=== PATIENT | female | born 1985 | race Asian ===

== ENCOUNTER 2021-02-16 14:34 | Emergency (ER) | payer OTHER ==
[~2021-02-16] VITALS: Ht 162.6 cm; Wt 76.0 kg
[2021-02-16 15:00] VITALS: BP 124/76
--- NOTE | 2021-02-16 15:40 | PHYS DOC ---
Past Medical History Past Medical History: No Pertinent History Past Surgical History: No Surgical History Smoking Status: Never Smoker Alcohol Use: None General Adult EDM: Chief Complaint: VAGINAL BLEEDING HPI: HPI: Patient is a 35 year old female who presents with today she noticed a small drop of blood in her underwear and she wiped and saw some on toilet paper. Patient denies abdominal pain, nausea, vomiting, diarrhea, fever,, abnormal vagi nal discharge, concern for sexually transmitted use. [facility] She states her next appointment is on March 06. She denies any pain. Her last menstrual period was January 04. She is due October 11, 2021. She is . Review of Systems: Review of Systems: Constitutional: Denies fever or chills. [] Eyes: Denies change in visual acuity. [] HENT: Denies nasal congestion or sore throat. [] Respiratory: Denies cough or shortness of breath. [] Cardiovascular: Denies chest pain or edema. [] GI: Denies abdominal pain, nausea, vomiting, bloody stools or diarrhea. [] : Denies dysuria. + Vaginal bleeding [] Musculoskeletal: Denies back pain or joint pain. [] Integument: Denies rash. [] Neurologic: Denies headache, focal weakness or sensory changes. [] Endocrine: Denies polyuria or polydipsia. [] Lymphatic: Denies swollen glands. [] Psychiatric: Denies depression or anxiety. [] Heart Score: C/O Chest Pain: No Risk Factors: Risk Factors: DM, Current or recent (<one month) smoker, HTN, HLP, family history of CAD, obesity. Risk Scores: Score 0 - 3: 2.5% MACE over next 6 weeks - Discharge Home Score 4 - 6: 20.3% MACE over next 6 weeks - Admit for Clinical Observation Score 7 - 10: 72.7% MACE over next 6 weeks - Early Invasive Strategies Physical Exam: PE: Constitutional: Well developed, well nourished, no acute distress, non-toxic appearance. [] HENT: Normocephalic, atraumatic, bilateral external ears normal, oropharynx moist, no oral exudates, nose normal. [] Eyes: PERRLA, EOMI, conjunctiva normal, no discharge. [] Neck: Normal range of motion, no tenderness, supple, no stridor. [] Cardiovascular:Heart rate regular rhythm, no murmur [] Lungs & Thorax: Bilateral breath sounds clear to auscultation [] Abdomen: Bowel sounds normal, soft, no tenderness, no masses, no pulsatile masses. [] Skin: Warm, dry, no erythema, no rash. [] Back: No tenderness, no CVA tenderness. [] Extremities: No tenderness, no cyanosis, no clubbing, ROM intact, no edema. [] Neurologic: Alert and oriented X 3, normal motor function, normal sensory function, no focal deficits noted. [] Psychologic: Affect normal, judgement normal, mood normal. Normal physical exam [] Current Patient Data: Vital Signs: Vital Signs Date Time Temp Pulse Resp B/P (MAP) Pulse Ox O2 Delivery O2 Flow Rate FiO2 02/16/21 15:00 98.7 74 16 124/76 (92) 100 Room Air 98.7 EKG: EKG: [] Radiology/Procedures: Radiology/Procedures: [] Impression: [facility] [address] [place] [address] IMAGING REPORT Signed PATIENT: BOB LICEA ACCOUNT: [id number] : 1985 LOCATION: ER AGE: 35 SEX: F EXAM STATUS: REG ER ORD. PHYSICIAN: LAURA MAYERS APRN REASON: VAGINAL BLEEDING PROCEDURE: OB <14 WKS W/TV Obstetric ultrasound less than 14 weeks with transvaginal: Reason for examination: Vaginal spotting. Transvaginally the uterus measures 9.7 x 6.5 x 4.5 cm in greatest dimension. The endometrium is not abnormally thickened at 1 cm. There is a 1.7 cm nodule within the uterine fundus consistent with fibroid. No intrauterine gestation is evident. Adjacent to the superior aspect of the uterus in the right adnexa, there is a 4.9 x 3.5 x 4.1 cm mass with some vascularity. This could represent an exophytic fibroid from the uterus or the right ovary however no follicles are seen. Posterior to the uterus and in the right adnexa, there appears to be a 2.8 x 1.6 x 2.9 cm structure which shows no abnormal vascularity or follicles. This also could represent the right ovary. There is no ectopic gestational sac evident. No free fluid is evident. IMPRESSION: No evidence of intrauterine or ectopic gestation. Soft tissue lesion within the uterine fundus measuring 1.7 cm in size consistent with a fibroid. 4.9 cm exophytic mass adjacent to the superior aspect of the uterus in the right adnexa possibly representing a uterine fibroid. 2.9 cm structure in the right adnexa posterior to uterus probably representing the right ovary with normal vascularity and no follicles. Recommend clinical correlation and follow-up. Electronically signed by: Aggie Womack MD (02/16/2021 5:09 PM) [facility] DICTATED and SIGNED BY: AGGIE WOMACK MD DATE: 02/16/21 [id number] 0 Course & Med Decision Making: Course & Med Decision Making Pertinent Labs and Imaging studies reviewed. (See chart for details) See HPI. Alert and oriented x4. Ambulatory with a steady gait. No CVA tenderness. Abdomen is soft and nontender. Skin is pink warm and dry. Vital signs are within normal limits. Speaks in full clear sentences. Patient's urine did not show any bacteria but showed some leukocytes and white blood cells. I will go ahead and treat her for UTI due to her being . Ultrasound showed fibroids and no gestational sac. Patient will follow up with her OB doctor. [] [place] Disclaimer: Dragjesse Disclaimer: This electronic medical record was generated, in whole or in part, using a voice recognition dictation system. Departure Departure Impression: Primary Impression: Threatened miscarriage Additional Impression: Uterine fibroid Qualified Codes: D25.9 - Leiomyoma of uterus, unspecified Disposition: HOME / SELF CARE / HOMELESS Condition: STABLE Referrals: RAUL SANTIAGO (PCP) Patient Instructions: Fibroids, [id number], Threatened Miscarriage Additional Instructions: Follow-up with your OB doctor soon as possible. I will call to see if you can get in sooner than later. If you begin bleeding vaginally and going through more than 1 pad an hour you should come back to the emergency room. Otherwise follow-up with your OB doctor. Drink plenty of fluids. Scripts Nitrofurantoin Monohyd/M-Cryst (MACROBID 100 MG CAPSULE) 100 Mg Capsule 1 CAP PO BID for 7 Days, #14 CAP 0 Refills Prov: LAURA MAYERS APRN 02/16/21 LAURA MAYERS APRN February 16, 2021 15:40
[2021-02-16 16:09] LABS: BASO % 1 % (0-3); EOS # 0.2 x10^3/uL (0.0-0.7); EOS % 2 % (0-3); HEMATOCRIT 34.9 % (36.0-47.0); HEMOGLOBIN 11.6 g/dL (12.0-15.5); LYMPH # 1.8 x10^3/uL (1.0-4.8); LYMPH % 29 % (24-48); MEAN CORPUSCULAR HEMOGLOBIN 29 pg (25-35); MEAN CORPUSCULAR HGB CONC 33 g/dL (31-37); MEAN CORPUSCULAR VOLUME 87 fL (79-100); MONO # 0.4 x10^3/uL (0.0-1.1); MONO % 6 % (0-9); NEUT # 3.9 x10^3/uL (1.8-7.7); NEUT % 62 % (31-73); PLATELET COUNT 272 x10^3/uL (140-400); RED BLOOD COUNT 4.03 x10^6/uL (3.50-5.40); RED CELL DISTRIBUTION WIDTH 12.9 % (11.5-14.5); WHITE BLOOD COUNT 6.3 x10^3/uL (4.0-11.0)
[2021-02-16 16:20] LABS: CALCIUM 8.4 mg/dL (8.5-10.1); CREATININE 0.6 mg/dL (0.6-1.0); GFR 113.1; POTASSIUM 4.4 mmol/L (3.5-5.1)
[2021-02-16 16:26] LABS: ALBUMIN 3.7 g/dL (3.4-5.0); TOTAL BILIRUBIN 0.4 mg/dL (0.2-1.0); TOTAL PROTEIN 7.3 g/dL (6.4-8.2)
--- NOTE | 2021-02-16 17:11 | RAD ---
Obstetric ultrasound less than 14 weeks with transvaginal: Reason for examination: Vaginal spotting. Transvaginally the uterus measures 9.7 x 6.5 x 4.5 cm in greatest dimension. The endometrium is not a bnormally thickened at 1 cm. There is a 1.7 cm nodule within the uterine fundus consistent with fibro id. No intrauterine gestation is evident. Adjacent to the superior aspect of the uterus in the right adnexa, there is a 4.9 x 3.5 x 4.1 cm mass with some vascularity. This could represent an exophytic f ibroid from the uterus or the right ovary however no follicles are seen. Posterior to the uterus and in the right adnexa, there appears to be a 2.8 x 1.6 x 2.9 cm structure which shows no abnormal vascu larity or follicles. This also could represent the right ovary. There is no ectopic gestational sac e vident. No free fluid is evident. IMPRESSION: No evidence of intrauterine or ectopic gestation. Soft tissue lesion within the uterine fundus measuring 1.7 cm in size consistent with a fibroid. 4.9 cm exophytic mass adjacent to the superior aspect of the uterus in the right adnexa possibly repr esenting a uterine fibroid. 2.9 cm structure in the right adnexa posterior to uterus probably representing the right ovary with n ormal vascularity and no follicles. Recommend clinical correlation and follow-up. Electronically signed by: Aggie Mckeon MD (02/16/2021 5:09 PM) [facility]
[2021-02-16 17:40] LABS: BILIRUBIN,URINE NEGATIVE (NEG); CLARITY,URINE CLEAR; COLOR,URINE YELLOW; NITRITE,URINE NEGATIVE (NEG); PROTEIN,URINE NEGATIVE (NEG-TRACE); UROBILINOGEN,URINE 0.2 mg/dL (0.2 mg/dL)
[2021-02-16 17:45] LABS: BACTERIA,URINE 0 /HPF (0-FEW)
[2021-02-16] MEDS ORDERED: NITR100C62 PO (17:54)
== END 2021-02-16 18:10 | disposition home or self-care (01) ==
LOC: ER 14:34
DX: O20.0 Threatened abortion (principal); O34.11 Maternal care for benign tumor of corpus uteri, first trimester; D25.9 Leiomyoma of uterus, unspecified; Z3A.01 Less than 8 weeks gestation of pregnancy
CPT/HCPCS: 36415; 76801; 76817; 80053; 81001; 81025; 84702; 85025; 86850; 86900; 86901; 87086; 99284